=== PATIENT | male | born 1980 | race Caucasian/White ===

== ENCOUNTER 2021-08-04 09:33 | Outpatient (RCR) | payer BC, SELFPAY ==
[2021-08-04] MEDS: diphenhydrAMINE HCl CAP 25 MG CAPSULE PO (15:13)
[2021-08-04] MEDS: ACETAMINOPHEN 325 MG TABLET 650 MG PO (15:13)
[2021-08-04] MEDS: FAMOTIDINE 20 MG TABLET PO (15:13)
[2021-08-04 15:21] VITALS: BP 123/60; PULSE 76; RESP 20; TEMP 37; O2SAT 98
[2021-08-04 15:25] VITALS: BP 123/60; PULSE 76; RESP 20; TEMP 37; O2SAT 98
[2021-08-04 16:11] VITALS: BP 138/62
--- NOTE | 2021-08-05 09:09 | PC.NURSE ---
Attempted to call patient with no answer, left message for patient to return call.
== END 2021-08-04 16:00 ==
LOC: AMCINF 09:33
PROVIDERS: PCP Physician Assistant Medical; Visit Provider Internal Medicine Hematology & Oncology
DX: U07.1 COVID-19 (principal); I10 Essential (primary) hypertension
CPT/HCPCS: A9270; M0243